=== PATIENT | female | born 1995 | race Two or more races ===

== ENCOUNTER 2021-05-28 15:27 | Emergency (ER) | payer OTHER ==
[~2021-05-28] VITALS: Ht 157.5 cm; Wt 47.2 kg
[2021-05-28] MEDS ORDERED: ALBUTEROL0.63 MG/3 IH (17:17)
[2021-05-28] MEDS ORDERED: NASAL MIST126 ML (19:16)
== END 2021-05-28 17:25 | disposition home or self-care (01) ==
LOC: ER 15:27
DX: J98.01 Acute bronchospasm (principal)